=== PATIENT | female | born 1955 | race Caucasian/White ===

== ENCOUNTER 2016-11-17 07:00 | Day surgery (SDC) | payer OTHER ==
[2016-11-14 15:02] VITALS: Ht 152.4 cm; Wt 59.5 kg
[~2016-11-17] VITALS: Ht 152.4 cm; Wt 59.5 kg
[2016-11-17] VITALS (15 sets, daily range): BP systolic 103–177; BP diastolic 55–86; PULSE 42–66; RESP 15–26
[~2016-11-17 07:00] MED LIST: CEFAZOLIN 2 GM/50 ML (PMX) 50 ML IVPB ONE; HYDR12.58 PO; METR250T19 PO; ROCURONIUM 50 MG INJ ONE; SOD CHLORIDE 0.9% 1,000 ML IV ONE
[2016-11-17] MEDS ORDERED: BUPIVACAINE 0.25% (MPF) 30 ML INJ ONE (08:49)
[2016-11-17] MEDS ORDERED: MIDAZOLAM 1 MG/ML 2 ML INJ ONE (08:54)
[2016-11-17] MEDS ORDERED: PROPOFOL 20 ML ONE (08:54)
[2016-11-17] MEDS ORDERED: FENTAnyl 50 MCG/ML VIAL ONE (08:54)
[2016-11-17] MEDS ORDERED: CEFAZOLIN 1 GM INJ ONE (08:54)
[2016-11-17] MEDS ORDERED: DEXAMETHASONE 4 MG/ML 1 ML INJ ONE (09:18)
[2016-11-17] MEDS ORDERED: KETOROLAC 30 MG INJ ONE (09:18)
[2016-11-17] MEDS ORDERED: METOCLOPRAMIDE 10 MG INJ ONE (09:18)
[2016-11-17] MEDS ORDERED: ONDANSETRON 4 MG INJ ONE (09:18)
[2016-11-17] MEDS ORDERED: NEOSTIGMINE 3 MG/3 ML SYRINGE ONE (09:35)
[2016-11-17] MEDS ORDERED: GLYCOPYRROLATE 0.4 MG INJ ONE (09:35)
--- NOTE | 2016-11-17 09:41 | SIPON ---
Date/Time of Note Date/Time of Note DATE: 11/17/16 TIME: 09:40 Operative Report Preoperative Diagnosis thyroglossal duct cyst Postoperative Diagnosis sebaceous cyst Operation/Procedure Performed 1. anterior neck cystectomy 4 cm incision 4 cm mass 2. localized adjacent tissue transfer with the use of skin flaps 8 sq cm defect 3. therapeutic injection of subcutaneous marcaine cpt code 00021 Surgeon see signature line workers compensation claims assistant none Anesthesia: general Estimated blood loss: minimal Transfusion Required none Specimen anterior neck cyst Grafts/Implants none Complications none Cade MOSQUEDA Nov 17, 2016 09:41
[2016-11-17] MEDS ORDERED: DIPHENHYDRAMINE 50 MG INJ IV PRN (10:00)
[2016-11-17] MEDS ORDERED: ONDANSETRON 4 MG INJ IV PRN (10:00)
[2016-11-17] MEDS ORDERED: MEPERIDINE 25 MG INJ IV PRN (10:00)
[2016-11-17] MEDS ORDERED: morphine (1 MG/ML) 10ML SYRINGE IV PRN ×3 (10:00)
[2016-11-17] MEDS ORDERED: hydrALAzine 20 MG INJ IV PRN (10:00)
[2016-11-17] MEDS ORDERED: HYDROCODONE/APAP (5/325) TAB PO ONE (10:00)
[2016-11-17] MEDS ORDERED: FENTAnyl 50 MCG/ML VIAL IV PRN ×3 (10:00)
[2016-11-17] MEDS ORDERED: OXYCODONE/ACETAMINOPHEN (5/325) TAB PO PRN (10:00)
[2016-11-17] MEDS ORDERED: EPHEDrine SULFATE 50 MG/5 ML SYG IV PRN (10:00)
[2016-11-17] MEDS ORDERED: LABETALOL HCL 20MG INJ IV PRN (10:00)
--- NOTE | 2016-11-17 10:22 | OPR ---
DATE OF OPERATION: 11/17/2016 INDICATION: This is a 61-year-old female with an anterior neck mass. This was shown on MRI to be a thyroglossal duct cyst. She is taken to the OR for excision of cyst. This was found intraoperatively to be a sebaceous cyst. Simple cystectomy was performed. Risks, alternatives, benefits, and personnel were discussed with the patient. Patient expressed understanding and consents to the operation. PREOPERATIVE DIAGNOSIS: Thyroglossal duct cyst. POSTOPERATIVE DIAGNOSIS: Anterior neck cyst. OPERATION PERFORMED: 1. Anterior neck cystectomy with 4-cm size incision 4-cm size mass. 2. Localized adjacent tissue transfer with use of skin flaps of a square cm defect. 3. Therapeutic subcutaneous Marcaine injection. SURGEON: Gunner Jeffries MD SPECIMEN: Anterior neck cyst. COMPLICATIONS: Complications none. ANESTHESIA: General. ESTIMATED BLOOD LOSS: Minimal. OPERATIVE PROCEDURE: Patient taken to the OR, prepped and draped in usual sterile fashion. Surgical time out was performed. IV antibiotics were given. A transverse incision was made with a 15 blade over the anterior neck cyst. Dissection cautery was carried down to the mass. The mass appeared to be a sebaceous cyst. This was excised en bloc. There was no duct or opening into or through the platysma. The cyst was resected en bloc. Hemostasis established. Due to the tissue defect, localized adjacent tissue transfer with use of skin flaps was performed. Multilayered closure with interrupted 3-0 Vicryl and running 4-0 Monocryl. Therapeutic subcutaneous Marcaine was injected throughout the incision. Dry dressings were applied. Dictated By: Cesia Ortiz /[email or web address]/[email or web address] /Document#: [id number]
== END 2016-11-17 11:40 | disposition home or self-care (01) ==
LOC: SDS 07:00
PROVIDERS: ATTEND Surgery
DX: L72.0 Epidermal cyst (principal); E03.9 Hypothyroidism, unspecified; I10 Essential (primary) hypertension; E78.5 Hyperlipidemia, unspecified
CPT/HCPCS: 14040; 88304; J0690; J1100; J1885; J2250; J2405; J2710; J2765; J3010; Z7512; Z7610